=== PATIENT | male | born 1990 | race Caucasian/White ===

== ENCOUNTER 2016-12-02 14:25 | Emergency (ER) | payer BC ==
--- NOTE | 2016-12-02 14:40 | EDM.PDOC ---
ED HPI GENERAL MEDICAL PROBLEM - General Chief Complaint: Chest Pain Stated Complaint: RACING HEART Time Seen by Provider: 12/02/16 14:30 Source of Information: Reports: Patient History Limitations: Reports: No Limitations - History of Present Illness INITIAL COMMENTS - FREE TEXT/NARRATIVE: History of present illness: [46-year-old male comes in complaining of palpitations as well as uncontrolled shaking of his extremities. Patient indicates he does know his underlying anxiety disorder and he does better when he's on his medicine but he comes in desiring to have sore evaluated disease concerned he might be having cardiac issues. Patient also indicates that he is having pain in his back directly behind his heart.] Review of systems: As per history of present illness and below otherwise all systems reviewed and negative. Past medical history: As per history of present illness and as reviewed below otherwise noncontributory. Surgical history: As per history of present illness and as reviewed below otherwise noncontributory. Social history: No reported history of drug or alcohol abuse. Family history: As per history of present illness and as reviewed below otherwise noncontributory. Physical exam: HEENT: Atraumatic, normocephalic, pupils reactive, negative for conjunctival pallor or scleral icterus, mucous membranes moist, throat clear, neck supple, nontender, trachea midline. Lungs: Clear to auscultation, breath sounds equal bilaterally, chest nontender. Heart: S1S2, regular, negative for clicks, rubs, or JVD. Abdomen: Soft, nondistended, nontender. Negative for masses or hepatosplenomegaly. Negative for costovertebral tenderness. Pelvis: Stable nontender. Genitourinary: Deferred. Rectal: Deferred. Extremities: Atraumatic, negative for cords or calf pain. Neurovascular unremarkable. Neuro: Awake, alert, oriented. Cranial nerves II through XII unremarkable. Cerebellum unremarkable. Motor and sensory unremarkable throughout. Exam nonfocal. Global assessment is benign save the subjective complaint as noted in the history of present illness. Patient refused all injections. Diagnostics: [CBC, CMP, troponin] Therapeutics: [Toradol 60 mg IM, Norflex] Impression: [Tachycardia, anxiety] Plan: [Up with primary care] Definitive disposition and diagnosis as appropriate pending reevaluation and review of above. chest pain Pain Score (Numeric/FACES): 3 - Related Data Allergies Allergy/AdvReac Type Severity Reaction Status Date / Time No Known Allergies Allergy Verified 12/02/16 15:15 Home Meds: Home Meds ClonazePAM [KlonoPIN] 1 mg PO TID 12/02/16 [History] Social & Family History - Tobacco Use Smoking Status *Q: Current Every Day Smoker Years of Tobacco use: 3 - Recreational Drug Use Recreational Drug Use: No Drug Use in Last 12 Months: Yes Recreational Drug Type: Reports: Marijuana/Hashish ED ROS GENERAL - Review of Systems Review Of Systems: See Below (History of present illness) ED EXAM, GENERAL - Physical Exam Exam: See Below (See history of present illness) Course - Vital Signs Last Recorded V/S: Last Vital Signs Temp 36.4 C 12/02/16 15:37 Pulse 88 12/02/16 15:37 Resp 18 12/02/16 15:37 BP 99/58 L 12/02/16 15:37 Pulse Ox 96 12/02/16 15:37 - Orders/Labs/Meds Orders: Active Orders 24 hr Category Date Time Status EKG Documentation Completion [RC] STAT Care 12/02/16 14:41 Active Orphenadrine [Norflex] Med 12/02/16 14:45 Active 60 mg IM Q12H Medication Orders Orphenadrine Citrate (Norflex) 60 mg IM Q12H PEBBLES Last Admin: 12/02/16 15:43 Dose: Not Given Labs: Laboratory Tests 12/02/16 12/02/16 12/02/16 Range/Units 14:46 14:46 14:46 WBC 7.39 (4.0-11.0) K/uL RBC 5.52 (4.50-5.90) M/uL Hgb 16.6 (13.0-17.0) g/dL Hct 47.5 (38.0-50.0) % MCV 86.1 (80.0-98.0) fL MCH 30.1 (27.0-32.0) pg MCHC 34.9 (31.0-37.0) g/dL RDW Std Deviation 41.4 (28.0-62.0) fl RDW Coeff of Juan 13 (11.0-15.0) % Plt Count 202 (150-400) K/uL MPV 9.70 (7.40-12.00) fL Neut % (Auto) 53.6 (48.0-80.0) % Lymph % (Auto) 36.7 (16.0-40.0) % [place] % (Auto) 5.5 (0.0-15.0) % Eos % (Auto) 3.9 (0.0-7.0) % Baso % (Auto) 0.3 (0.0-1.5) % Neut # (Auto) 4.0 (1.4-5.7) K/uL Lymph # (Auto) 2.7 H (0.6-2.4) K/uL [place] # (Auto) 0.4 (0.0-0.8) K/uL Eos # (Auto) 0.3 (0.0-0.7) K/uL Baso # (Auto) 0.0 (0.0-0.1) K/uL Nucleated RBC % 0.0 /100WBC Nucleated RBCs # 0 K/uL Sodium 141 (136-146) mmol/L Potassium 4.0 (3.5-5.1) mmol/L Chloride 110 (98-110) mmol/L Carbon Dioxide 22 (21-31) mmol/L BUN 19 (6.0-23.0) mg/dL Creatinine 1.3 (0.6-1.5) mg/dL Est Cr Clr Drug Dosing TNP Estimated GFR (MDRD) > 60.0 ml/min Glucose 164 H (60-110) mg/dL Hemoglobin A1c (0.0-6.0) % Calcium 9.2 (8.8-10.8) mg/dL Total Bilirubin 0.7 (0.1-1.5) mg/dL AST 16 (5-40) IU/L ALT 11 (8-54) IU/L Alkaline Phosphatase 58 (40-150) Troponin I < 0.10 (0.0-0.29) NG/ML Total Protein 7.2 (6.0-8.0) g/dL Albumin 4.2 (3.5-5.0) g/dL Globulin 3.0 (2.0-3.5) g/dL Albumin/Globulin Ratio 1.4 (1.3-2.8) 12/02/16 Range/Units 14:46 WBC (4.0-11.0) K/uL RBC (4.50-5.90) M/uL Hgb (13.0-17.0) g/dL Hct (38.0-50.0) % MCV (80.0-98.0) fL MCH (27.0-32.0) pg MCHC (31.0-37.0) g/dL RDW Std Deviation (28.0-62.0) fl RDW Coeff of Juan (11.0-15.0) % Plt Count (150-400) K/uL MPV (7.40-12.00) fL Neut % (Auto) (48.0-80.0) % Lymph % (Auto) (16.0-40.0) % [place] % (Auto) (0.0-15.0) % Eos % (Auto) (0.0-7.0) % Baso % (Auto) (0.0-1.5) % Neut # (Auto) (1.4-5.7) K/uL Lymph # (Auto) (0.6-2.4) K/uL [place] # (Auto) (0.0-0.8) K/uL Eos # (Auto) (0.0-0.7) K/uL Baso # (Auto) (0.0-0.1) K/uL Nucleated RBC % /100WBC Nucleated RBCs # K/uL Sodium (136-146) mmol/L Potassium (3.5-5.1) mmol/L Chloride (98-110) mmol/L Carbon Dioxide (21-31) mmol/L BUN (6.0-23.0) mg/dL Creatinine (0.6-1.5) mg/dL Est Cr Clr Drug Dosing Estimated GFR (MDRD) ml/min Glucose (60-110) mg/dL Hemoglobin A1c 5.4 (0.0-6.0) % Calcium (8.8-10.8) mg/dL Total Bilirubin (0.1-1.5) mg/dL AST (5-40) IU/L ALT (8-54) IU/L Alkaline Phosphatase (40-150) Troponin I (0.0-0.29) NG/ML Total Protein (6.0-8.0) g/dL Albumin (3.5-5.0) g/dL Globulin (2.0-3.5) g/dL Albumin/Globulin Ratio (1.3-2.8) Meds: Medications Generic Name Dose Route Start Last Admin Trade Name Freq PRN Reason Stop Dose Admin Orphenadrine Citrate 60 mg 12/02/16 14:45 12/02/16 15:43 Norflex IM Not Given Q12H PEBBLES Discontinued Medications Generic Name Dose Route Start Last Admin Trade Name Freq PRN Reason Stop Dose Admin Ketorolac Tromethamine 60 mg 12/02/16 14:36 12/02/16 15:42 Toradol IM 12/02/16 14:37 Not Given ONETIME ONE Departure - Departure Time of Disposition: 16:12 Disposition: Home, Self-Care 01 Condition: Good Clinical Impression: Heart palpitations - Discharge Information Instructions: Nonspecific Chest Pain, [id number] Additional Instructions: The following information is given to patients seen in the emergency department who are being discharged to home. This information is to outline your options for follow-up care. We provide all patients seen in our emergency department with a follow-up referral. The need for follow-up, as well as the timing and circumstances, are variable depending upon the specifics of your emergency department visit. If you don't have a primary care physician on staff, we will provide you with a referral. We always advise you to contact your personal physician following an emergency department visit to inform them of the circumstance of the visit and for follow-up with them and/or the need for any referrals to a consulting specialist. The emergency department will also refer you to a specialist when appropriate. This referral assures that you have the opportunity for follow-up care with a specialist. All of these measure are taken in an effort to provide you with optimal care, which includes your follow-up. Under all circumstances we always encourage you to contact your private physician who remains a resource for coordinating your care. When calling for follow-up care, please make the office aware that this follow-up is from your recent emergency room visit. If for any reason you are refused follow-up, please contact the [facility] Emergency Department at and asked to speak to the emergency department charge nurse. Up with your primary care provider for further diagnostics with follow-up in regards to your anxiety, tremors, and or palpitations Return to ED as needed as discussed - My Orders Last 24 Hours: My Active Orders 12/02/16 14:41 EKG Documentation Completion [RC] STAT 12/02/16 14:45 Orphenadrine [Norflex] 60 mg IM Q12H - Assessment/Plan Last 24 Hours: My Active Orders 12/02/16 14:41 EKG Documentation Completion [RC] STAT 12/02/16 14:45 Orphenadrine [Norflex] 60 mg IM Q12H
[2016-12-02 15:17] LABS: CHLORIDE,CL 110 mmol/L (98-110); SODIUM,NA 141 mmol/L (136-146)
[2016-12-02] MEDS: Ketorolac 60 MG/2 ML SDV IM ONE ×2 (15:34→15:42)
[2016-12-02 15:39] VITALS: BP 99/58
== END 2016-12-02 16:20 | disposition home or self-care (01) ==
LOC: MW.ED 14:25
DX: F41.9 Anxiety disorder, unspecified (principal); F17.200 Nicotine dependence, unspecified, uncomplicated
CPT/HCPCS: 36415; 80053; 83036; 84484; 85025; 93005; 99283; 99285-25; J1885; J2360

== ENCOUNTER 2017-02-12 02:17 | Emergency (ER) | payer BC ==
[2017-02-12] MEDS ORDERED: Albuterol/Ipratropium 3.0-0.5 MG/3 ML Neb Soln NEB ONE ×2 (02:19→03:08)
[2017-02-12] MEDS ORDERED: predniSONE 20 MG Tab PO ONE (02:21)
--- NOTE | 2017-02-12 02:51 | EDM.PDOC ---
ED HPI GENERAL MEDICAL PROBLEM - General Chief Complaint: Respiratory Problem Stated Complaint: ASTHMA Time Seen by Provider: 02/12/17 02:39 - History of Present Illness INITIAL COMMENTS - FREE TEXT/NARRATIVE: HISTORY AND PHYSICAL: History of present illness: Patient 26-year-old male presents with a concern of shortness of breath and wheezing patient has history of asthma and ran out of his inhaler this morning he denies fever chills nausea vomiting or other complaints Review of systems: As per history of present illness and below otherwise all systems reviewed and negative. Past medical history: As per history of present illness and as reviewed below otherwise noncontributory. Surgical history: As per history of present illness and as reviewed below otherwise noncontributory. Social history: No reported history of drug or alcohol abuse. Family history: As per history of present illness and as reviewed below otherwise noncontributory. Physical exam: HEENT: Atraumatic, normocephalic, pupils reactive, negative for conjunctival pallor or scleral icterus, mucous membranes moist, throat clear, neck supple, nontender, trachea midline. Lungs: Diminished bilaterally scattered is currently Wheezing noted, breath sounds equal bilaterally, chest nontender. Heart: S1S2, regular, negative for clicks, rubs, or JVD. Abdomen: Soft, nondistended, nontender. Negative for masses or hepatosplenomegaly. Negative for costovertebral tenderness. Pelvis: Stable nontender. Genitourinary: Deferred. Rectal: Deferred. Extremities: Atraumatic, negative for cords or calf pain. Neurovascular unremarkable. Neuro: Awake, alert, oriented. Cranial nerves II through XII unremarkable. Cerebellum unremarkable. Motor and sensory unremarkable throughout. Exam nonfocal. Diagnostics: Chest x-ray Therapeutics: Albuterol ipratropium nebulizer prednisone 60 mg by mouth Impression: #1 acute asthmatic exacerbation #2 medical noncompliance Definitive disposition and diagnosis as appropriate pending reevaluation and review of above. chest Pain Score (Numeric/FACES): 4 - Related Data Allergies Allergy/AdvReac Type Severity Reaction Status Date / Time No Known Allergies Allergy Verified 12/02/16 15:15 Home Meds: Home Meds ClonazePAM [KlonoPIN] 1 mg PO TID PRN 12/02/16 [History] Albuterol Sulfate [Ventolin Hfa] 18 gm IH ASDIRECTED 02/12/17 [History] Past Medical History - Past Health History Medical/Surgical History: Denies Medical/Surgical History Respiratory History: Reports: Asthma Musculoskeletal History: Reports: Other (See Below) Other Musculoskeletal History: Jaw surgery- 2 plates and 8 screws Psychiatric History: Reports: Anxiety - Past Surgical History Musculoskeletal Surgical History: Reports: None Social & Family History - Family History Family Medical History: Noncontributory - Tobacco Use Smoking Status *Q: Former Smoker Years of Tobacco use: 3 Packs/Tins Daily: 1 Used Tobacco, but Quit: Yes Month Tobacco Last Used: 1 - Caffeine Use Caffeine Use: Reports: None - Recreational Drug Use Recreational Drug Use: Yes Drug Use in Last 12 Months: Yes Recreational Drug Type: Reports: Marijuana/Hashish Recreational Drug Use Frequency: Daily ED ROS GENERAL - Review of Systems Review Of Systems: ROS reveals no pertinent complaints other than HPI. ED EXAM, GENERAL - Physical Exam Exam: See Below (See dictation) Course - Vital Signs Last Recorded V/S: Last Vital Signs Temp 36.5 C 02/12/17 02:17 Pulse 120 H 02/12/17 02:17 Resp 20 02/12/17 02:17 BP 164/99 H 02/12/17 02:17 Pulse Ox 92 L 02/12/17 02:17 - Orders/Labs/Meds Orders: Active Orders 24 hr Category Date Time Status RT Aerosol Therapy [RC] ASDIRECTED Care 02/12/17 02:20 Active Chest 1V Frontal [CR] Stat Exams 02/12/17 02:21 Taken Meds: Medications Discontinued Medications Generic Name Dose Route Start Last Admin Trade Name Freq PRN Reason Stop Dose Admin Albuterol/Ipratropium 3 ml 02/12/17 02:19 02/12/17 02:29 Duoneb 3.0-0.5 Mg/3 Ml NEB 02/12/17 02:20 3 ml ONETIME ONE Administration Prednisone 60 mg 02/12/17 02:21 02/12/17 02:29 Prednisone PO 02/12/17 02:22 60 mg ONETIME ONE Administration Departure - Departure Time of Disposition: 02:50 Disposition: Home, Self-Care 01 Condition: Good Clinical Impression: Acute asthma - Discharge Information Referrals: PCP,None [Primary Care Provider] - Additional Instructions: The following information is given to patients seen in the emergency department who are being discharged to home. This information is to outline your options for follow-up care. We provide all patients seen in our emergency department with a follow-up referral. The need for follow-up, as well as the timing and circumstances, are variable depending upon the specifics of your emergency department visit. If you don't have a primary care physician on staff, we will provide you with a referral. We always advise you to contact your personal physician following an emergency department visit to inform them of the circumstance of the visit and for follow-up with them and/or the need for any referrals to a consulting specialist. The emergency department will also refer you to a specialist when appropriate. This referral assures that you have the opportunity for followup care with a specialist. All of these measure are taken in an effort to provide you with optimal care, which includes your followup. Under all circumstances we always encourage you to contact your private physician who remains a resource for coordinating your care. When calling for followup care, please make the office aware that this follow-up is from your recent emergency room visit. If for any reason you are refused follow-up, please contact the [facility] emergency department at and asked to speak to the emergency department charge nurse. [facility] [address] [place] [address] Albuterol inhaler Medrol as prescribed follow-up primary medical doctor 1-2 days return as needed as discussed - My Orders Last 24 Hours: My Active Orders 02/12/17 02:20 RT Aerosol Therapy [RC] ASDIRECTED 02/12/17 02:21 Chest 1V Frontal [CR] Stat - Assessment/Plan Last 24 Hours: My Active Orders 02/12/17 02:20 RT Aerosol Therapy [RC] ASDIRECTED 02/12/17 02:21 Chest 1V Frontal [CR] Stat
[2017-02-12 03:43] VITALS: BP 144/87
--- NOTE | 2017-02-13 15:48 | CR ---
EXAM DATE: 02/12/17 PATIENT'S AGE: 26 Patient: MAURY WELLER Facility: [place], [place] Site . Site : 1992 Study: XRay Chest [id number]/17/2017 2:40:13 AM Ordering Physician: Doctor Erazo Final Report: INDICATIONS: Shortness of breath. History of asthma. TECHNIQUE: Chest 1 view. COMPARISON: Chest radiograph November 29, 2014. FINDINGS: No pneumothorax, pleural effusion or airspace consolidation. Cardiac and mediastinal contours are within normal limits. Upper abdomen and osseous structures show no acute abnormality. IMPRESSION: No evidence of acute cardiopulmonary disease. Dictated by Leonid Campbell MD @ 02/12/2017 2:56:58 AM Dictated by: Leonid Campbell MD @ 02/12/2017 02:57:03 (Electronic Signature) Report Signed by Proxy. [facility]OSPITALJuventino
== END 2017-02-12 03:31 | disposition home or self-care (01) ==
LOC: MW.ED 02:17
DX: J45.901 Unspecified asthma with (acute) exacerbation (principal); Z87.891 Personal history of nicotine dependence; Z91.19 Patient's noncompliance with other medical treatment and regimen
CPT/HCPCS: 71010; 99285; A9270; 99283